=== PATIENT | female | born 1950 | race Caucasian/White ===

== ENCOUNTER → 2016-05-31 | Outpatient (CLI) | payer MEDICARE, OTHER | LOC: MAMO 08:44 | DX: Z12.31 Encounter for screening mammogram for malignant neoplasm of breast (principal); Z78.0 Asymptomatic menopausal state | CPT/HCPCS: G0202 ==

== ENCOUNTER 2016-07-27 00:48 | Emergency (ER) | payer MEDICARE, OTHER ==
[2016-07-27 02:52] LABS: HEMOGLOBIN 14.1 gm/dl (12.3-15.3); RED BLOOD COUNT 4.46 M/UL (4.00-5.10); WHITE BLOOD COUNT 7.5 K/UL (4.5-11.0)
[2016-07-27 02:55] LABS: BUN/CREATININE RATIO 18 (0-10)
== END 2016-07-27 11:10 ==
LOC: ER1 00:48
PROVIDERS: Emergency Medicine; Family Medicine
DX: T44.7X2A Poisoning by beta-adrenoreceptor antagonists, intentional self-harm, initial encounter (principal); F10.239 Alcohol dependence with withdrawal, unspecified; E86.0 Dehydration; M62.82 Rhabdomyolysis; E11.9 Type 2 diabetes mellitus without complications; I10 Essential (primary) hypertension; Z79.84 Long term (current) use of oral hypoglycemic drugs; Z79.899 Other long term (current) drug therapy
CPT/HCPCS: 36415; 36600; 80048; 80053; 80307; 81001; 82550; 82553; 82803; 82962; 83874; 84443; 84484; 85025; 93005; 96361; 96374; 99285; G0480; J2060; J7030

== ENCOUNTER → 2016-08-17 | Outpatient (CLI) | payer MEDICARE, OTHER | LOC: MAMO 09:41 | DX: R92.8 Other abnormal and inconclusive findings on diagnostic imaging of breast (principal) | CPT/HCPCS: 76642-RT; G0206 ==

== ENCOUNTER 2021-11-13 17:44 | Inpatient (IN) | payer MEDICARE, OTHER ==
[~2021-11-13] VITALS: Ht 152.4 cm; Wt 59.9 kg
[2021-11-13 18:48] LABS: BORDETELLA PARAPERTUSSIS Not Detected (Not Detectd); BORDETELLA PERTUSSIS Not Detected (Not Detectd); CHLAMYDIA PNEUMONIAE Not Detected (Not Detectd); CORONAVIRUS HKU1 Not Detected (Not Detectd); CORONAVIRUS NL63 Not Detected (Not Detectd); CORONAVIRUS OC43 Not Detected (Not Detectd); CORONOAVIRUS 229E Not Detected (Not Detectd); HUMAN METAPNEUMOVIRUS Not Detected (Not Detectd); HUMAN RHINOVIRUS/ENTEROVIRUS Not Detected (Not Detectd); INFLUENZA A Not Detected (Not Detectd); INFLUENZA B Not Detected (Not Detectd); MYCOPLASMA PNEUMONIAE Not Detected (Not Detectd); PARAINFLUENZA VIRUS 1 Not Detected (Not Detectd); PARAINFLUENZA VIRUS 2 Not Detected (Not Detectd); PARAINFLUENZA VIRUS 3 Not Detected (Not Detectd); PARAINFLUENZA VIRUS 4 Not Detected (Not Detectd); RESPIRATORY SYNCYTIAL VIRUS Not Detected (Not Detectd)
[2021-11-13 18:59] LABS: HEMOGLOBIN 13.7 gm/dl (12.3-15.3); RED BLOOD COUNT 4.83 M/UL (4.00-5.10); WHITE BLOOD COUNT 8.3 K/UL (4.5-11.0)
[2021-11-13 19:16] LABS: BUN/CREATININE RATIO 33 (0-10)
[2021-11-13 20:15] LABS: SARS-CoV-2 NOT DETECTED (Not Detectd)
[2021-11-14 00:22] LABS: BUN/CREATININE RATIO 32 (0-10)
[2021-11-14 03:59] LABS: HEMOGLOBIN 12.3 gm/dl (12.3-15.3); WHITE BLOOD COUNT 9.1 K/UL (4.5-11.0)
[2021-11-14 04:01] LABS: RED BLOOD COUNT 4.28 M/UL (4.00-5.10)
[2021-11-14 04:22] LABS: BUN/CREATININE RATIO 30 (0-10)
[2021-11-14 07:17] LABS: BUN/CREATININE RATIO 30 (0-10)
[2021-11-14] MEDS ORDERED: PRAVASTATIN SOD40 MG PO (10:15)
[2021-11-14] MEDS ORDERED: FUROSEMIDE40 MG PO (10:16)
[2021-11-14] MEDS ORDERED: LEVOTHYROXINE25 MCG PO (10:16)
[2021-11-14] MEDS ORDERED: ZETIA10 MG PO (10:16)
[2021-11-14] MEDS ORDERED: TRADJENTA5 MG PO (10:16)
[2021-11-14] MEDS ORDERED: AMLODIPINE BESYL5 MG PO (10:16)
[2021-11-14] MEDS ORDERED: SERTRALINE HCL50 MG PO (10:17)
[2021-11-14] MEDS ORDERED: PROTONIX 40 MG40 M1 PO (10:17)
[2021-11-14] MEDS ORDERED: METOPROLOL SUCC25 MG PO (10:17)
[2021-11-14] MEDS ORDERED: ACTOS30 MG PO (10:17)
[2021-11-14] MEDS ORDERED: LISINOPRIL40 MG PO (10:17)
[2021-11-14] MEDS ORDERED: VITAMIN C500 M4 PO (10:18)
[2021-11-14] MEDS ORDERED: TIZANIDINE HCL4 MG PO (10:18)
[2021-11-14] MEDS ORDERED: VITAMIN D325 MC6 PO (10:19)
[2021-11-14] MEDS ORDERED: VITAMIN B-121000 MCG PO (10:19)
[2021-11-14] MEDS ORDERED: VITAMIN E100 UNI2 PO (10:19)
[2021-11-15 05:12] LABS: HEMOGLOBIN 12.8 gm/dl (12.3-15.3); RED BLOOD COUNT 4.35 M/UL (4.00-5.10); WHITE BLOOD COUNT 8.1 K/UL (4.5-11.0)
[2021-11-15 05:39] LABS: BUN/CREATININE RATIO 28 (0-10)
[2021-11-15] MEDS ORDERED: METOPROLOL SUCC50 MG PO (12:44)
== END 2021-11-15 13:56 | disposition home or self-care (01) | DRG 638 ==
LOC: ER1 17:44 → CDU 20:22 → CCU 20:22 → PROG CARE 11-15 02:42
PROVIDERS: Internal Medicine; Preventive Medicine Occupational Medicine; ADMIT Internal Medicine
DX: E09.65 Drug or chemical induced diabetes mellitus with hyperglycemia (principal); E87.2 Acidosis; I10 Essential (primary) hypertension; T38.0X5A Adverse effect of glucocorticoids and synthetic analogues, initial encounter; E03.9 Hypothyroidism, unspecified; E86.0 Dehydration; Z90.49 Acquired absence of other specified parts of digestive tract; Z90.710 Acquired absence of both cervix and uterus; Z82.49 Family history of ischemic heart disease and other diseases of the circulatory system; Z88.7 Allergy status to serum and vaccine
CPT/HCPCS: 36415; 36600; 71045; 80048; 80053; 80061; 80307; 81001; 82550; 82553; 82803; 82962; 83036; 83605; 83880; 84484; 85025; 85652; 86140; 87077; 87086; 87186; 87633; 93005; 96374; 96375; 96376; 99285; G0480; J1650; J2405